=== PATIENT | male | born 1980 | race Caucasian/White ===

== ENCOUNTER 2017-09-27 15:59 | Emergency (ER) | payer MEDICARE, OTHER ==
[2017-09-27] MEDS ORDERED: methylPREDNISolone SOD SUCC 125 MG/2 ML VIAL IVP ONE (16:09)
--- NOTE | 2017-09-27 16:09 | ED Physician Documentation ---
Asthma - HISTORIAN Historian: patient - HPI Stated Complaint: asthma attack Chief Complaint: Dyspnea Onset: hours (2) Duration: continues in ED Initiating Event: environmental allergy Associated Symptoms:: trouble breathing, shortness of breath, chest discomfort, chest tightness. denies: fever, sweating, hurts to breath Current Asthma Therapy: albuterol inhaler Further Comments: yes (He states he was working in an [employer] and they would not give him a mask to wear and they were cleaning in the attic. He denies a fever. He is only using a ProAir inhaler. HE states this usually helps but today he has used it "several times" with no aide. He feels short on air and wheezing) - ROS CONST: no problems MS/SKIN/LYMPH: denies: rash NEURO/PSYCH: light-headedness. denies: headache, dizziness - PAST HX Asthma: occasional attacks Lung Disease: asthma DVT/PE Risk Factors: none Other History: other Surgeries/Procedures: other Immunizations: UTD Allergies/Adverse Reactions: Allergies Allergy/AdvReac Type Severity Reaction Status Date / Time No Known Drug Allergies Allergy Verified 08/09/15 21:11 Home Medications: Ambulatory Orders Medication Instructions Recorded Cyclobenzaprine HCl [Flexeril] 10 mg PO TID 7 Days tablet 07/02/15 traMADol HCL [Ultram] 50 mg PO Q4H PRN #18 tablet 07/02/15 - SOCIAL HX Smoking History: cigarettes Alcohol Use: none Drug Use: none - FAMILY HX Family History: denies: emphysema, asthma - VITAL SIGNS Vital Signs: Vital Signs Temp Pulse Resp BP Pulse Ox 114/78 08/09/15 22:55 - REVIEWED ASSESSMENTS Nursing Assessment Reviewed: Yes Vitals Reviewed: Yes Progress - Progress Progress: 1640: Improved breathing DG ED Results Lab/Radiology - Radiology Radiology Impressions: Examination: PA and lateral chest. History: Evaluate lung jacob. Difficulty breathing started 4 days ago (Hx) Findings: PA lateral chest demonstrate a normal cardiac and mediastinal silhouette. No focal infiltrate. No blunting of the costophrenic margins. Osseous structures are appropriate for age. Impression: No acute pulmonary process. Electronically signed on September 27, 2017 4:58:45 PM CDT by: Thomas Klein Asthma Physical Exam - EXAM General Appearance: alert, mild distress EENT: eye inspection normal, ENT inspection normal, pharynx normal, TM's nml Respiratory: respiratory distress (mild ), decreased air movement, wheezes, resp. fatigue CVS: reg rate & rhythm, heart sounds normal, equal pulses, no murmur Abdomen: non-tender, no organomegaly, nml bowel sounds, no distention Skin: color nml, no rash Extremities: non-tender, normal range of motion, no evidence of injury, no edema Neuro/Psych: oriented x3, neuro intact, mood/affect nml Discharge Clincal Impression: Asthma attack Qualifiers: Asthma severity: moderate Asthma persistence: unspecified Qualified Code(s): J45.901 - Unspecified asthma with (acute) exacerbation Referrals: Primary Doctor,No [Primary Care Provider] - 2 Days Additional Instructions: 1. Use ProAir 2 puffs every 4-6 hours as needed for cough 2. Medrol Dose pack take as directed starting 09.28.2017 3. USE A MASK 4. Return to PCP in 2-4 days for follow up on asthma 5. Return to ER for increasing shortness of breath or other concerns Condition: Stable Disposition: 01 HOME, SELF-CARE Decision to Admit: NO Date of Decison to Admit: 09/27/17 Decision Time: 18:10
[2017-09-27] MEDS ORDERED: IPRATROPIUM/ALBUTEROL SULFATE 3 ML AMPUL.NEB NEB ONE (16:10)
[2017-09-27] MEDS ORDERED: ALBUTEROL SULFATE 2.5 MG/3 ML AMPUL.NEB NEB ONE (16:12)
[2017-09-27 16:25] LABS: MEAN CORPUSCULAR HEMOGLOBIN 30.2 pg (28.0-34.0); MEAN CORPUSCULAR VOLUME 88.5 fl (80.0-100.0)
[2017-09-27 16:27] LABS: MONOCYTES % 4.2 % (0.0-11.0)
[2017-09-27 16:28] LABS: BASOPHILS % 0.5 (0.0-1.5); EOSINOPHILS % 14.4 % (0.0-6.8); NEUTROPHILS # 5.7 # k/uL (1.4-7.7)
[2017-09-27 16:36] LABS: eGFR (African) > 60; eGFR (Non-African) > 60
[2017-09-27] MEDS ORDERED: BUDESONIDE 0.5MG/2ML AMPUL.NEB NEB ONE (16:59)
--- NOTE | 2017-09-27 17:28 | Diagnostic Imaging Report ---
ESPERANZA BARAHONA [id number] [facility] [address] [place], [place]. [address] Report Submission Date: September 27, 2017 4:58:45 PM CDT Patient Study Name: DION RAINES Date: September 27, 2017 4:39:59 PM CDT Modality Type: DX Gender: M Description: CHEST : 82 Institution: Physician: ESPERANZA BARAHONA Examination: PA and lateral chest. History: Evaluate lung jacob. Difficulty breathing started 4 days ago (Hx) Findings: PA lateral chest demonstrate a normal cardiac and mediastinal silhouette. No focal infiltrate. No blunting of the costophrenic margins. Osseous structures are appropriate for age. Impression: No acute pulmonary process. Electronically signed on September 27, 2017 4:58:45 PM CDT by: Thomas GASTELUM
[2017-09-27 18:29] VITALS: BP 125/80
== END 2017-09-27 18:09 | disposition home or self-care (01) ==
LOC: ED 15:59
DX: J45.901 Unspecified asthma with (acute) exacerbation (principal)
CPT/HCPCS: 71046; 80053; 85025; J2930; J7626; 94640; 96374; 99284; S1016